=== PATIENT | male | born 1975 | race Hispanic/Latino ===

== ENCOUNTER 2025-07-09 07:34 | Day surgery (SDC) | payer OTHER ==
[~2025-07-09] VITALS: Ht 162.6 cm; Wt 146.1 kg
[2025-07-09] VITALS (9 sets, daily range): BP systolic 116–154; BP diastolic 62–84; PULSE 60–76; RESP 12–18; TEMP 96.9–99
[~2025-07-09 07:34] MED LIST: LEVO100C5 PO; TAMS-55 PO
[2025-07-09] MEDS: 0.9%NACL 1000ML 1,000 ML IV ONE (09:14)
== END 2025-07-09 13:02 | disposition home or self-care (01) ==
LOC: SUH 07:34 → DAH 07:34 → SUH 13:02
PROVIDERS: ATTEND Internal Medicine Gastroenterology
DX: Z12.11 Encounter for screening for malignant neoplasm of colon (principal); D12.2 Benign neoplasm of ascending colon; D12.3 Benign neoplasm of transverse colon; K64.1 Second degree hemorrhoids; K55.20 Angiodysplasia of colon without hemorrhage; E66.01 Morbid (severe) obesity due to excess calories; R94.5 Abnormal results of liver function studies; K76.0 Fatty (change of) liver, not elsewhere classified; E03.9 Hypothyroidism, unspecified; Z88.6 Allergy status to analgesic agent; Z68.43 Body mass index [BMI] 50.0-59.9, adult; Z79.899 Other long term (current) drug therapy
CPT/HCPCS: 45380; 45385; J7030 ×2; J2704; A4620; A4657; A7002; J3490